=== PATIENT | female | born 1995 | race Caucasian/White ===

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

== ENCOUNTER 2022-10-28 13:53 | Inpatient (IN) ==
[2022-10-28] MEDS ORDERED: ceFAZolin 2000MG 2,000 MG/15 ML SYR IV STA (14:41)
[2022-10-28] MEDS ORDERED: AZITHROMYCIN 500 MG in DEXTROSE 5% 250 ML IV STA (14:41)
[2022-10-28] MEDS ORDERED: OXYTOCIN 30 UNITS/500 ML BAG IV PRN (14:41)
[2022-10-28] MEDS ORDERED: LIDOCAINE 1% LOCAL 20 ML VIAL INFIL PRN (14:41)
[2022-10-28] MEDS ORDERED: LACTATED RINGER'S 1,000 ML IV PRN (14:41)
--- NOTE | 2022-10-28 14:52 | History & Physical Report ---
Date of Service October 28, 2022 Assessment & Plan (1) Active labor: (2) Previous delivery affecting , antepartum: Plan 27 yo at 37 wga presents in labor VSS Fetus cat 1 Appears to be in active labor so will proceed with delivery, desires repeat given traumatic delivery with first. Discussed indications, risks, benefits, alternatives with risks including infection, bleeding, injury to adjacent structures (bowel, bladder, ureters, blood vessels, nerves, baby), possible need for blood transfusion and/or life saving hysterectomy, VTE. Consent reviewed in detail w/ pt and signed after all questions answered to her satisfaction. Plan for ancef and azithro given laboring, anesthesia made aware History of Present Illness Chief Complaint: Contractions Primary Care Provider: Ran Shepherd PA-C 27 yo at 37 wga presents with contractions increasing in frequency and intensity. Started last evening but worsened to q3 since about noon today. 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 Hx: G1 2017 primary CS at 35 wks c/b cervical lac G2 current denies hx STIs 10/2020 neg cyto Allergies Allergy/AdvReac Type Severity Reaction Status Date / Time No Known Allergies Allergy Verified 10/27/22 15:46 Home Medications Medication Instructions Recorded Confirmed Type prenat.vits,alfred,kmz-otdi-qmavy 1 tab PO DAILY 04/07/22 10/27/22 History Patient History Medical History (Updated 10/28/22 @ 14:50 by Deanna Muñoz MD) Abnormal vaginal bleeding pain Premature onset of labor Surgical History (Updated 10/28/22 @ 14:47 by Deanna Muñoz MD) delivery delivered complicated by cervical avulsion Family History (Updated 10/15/20 @ 14:17 by Eda Duarte MD) Grandmother (Maternal) Heart disease Osteoporosis Denies family history of Ovarian cancer Breast cancer Colorectal cancer Social History (Updated 04/07/22 @ 17:11 by Saumya Sanchez) Smoking Status: Never smoker Do You Dip or Chew Tobacco: No; Hx Alcohol Use: No Hx Substance Use: No Beliefs That Will Affect Care: None marital status: Single marital status details: FOB: Clinton (23) [phone] Current Living Situation: Significant Other Current Living Situation Comment: lives with FOB, child, no pets. current occupational status: employed current occupation: Seasonal Clerk. Other Information That Helps Us Care for You: No Feels Safe at Home: Yes Safety Concerns: Feels Safe At This Time Assistive Devices: None Physical Exam Genitourinary: Manual OB Exam: + cervical dilation (3-4), + cervical effacement 80% and + station -2 OB Exam Monitor Tracing: + external FHT monitor used, + external uterine monitor used (q3) and + category I (1 25-130/mod/+accel/-decel) bulging bag noted Results & Data Vital Signs (Past 12 Hours) Vital Signs Temp Resp 10/28/22 14:02 97.9 F 20 Laboratory Results OB Labs: Blood Type O Positive 04/14/22 Antibody Screen NEGATIVE 04/14/22 Hemoglobin 13.2 g/dl (12.0-16.0) 09/04/22 Hematocrit 37.4 % (37.0-47.0) 09/04/22 Mean Corpuscular Volume 94.0 fL (80.0-100.0) 09/04/22 Platelet Count 269 K/uL (130-400) 09/04/22 Rubella IgG Antibody Non Immune (Immune) L 04/14/22 Rapid Plasma ReaginE Nonreactive (Nonreactive) 04/14/22 Hepatitis B Surface Antigen. NON-REACTIVE (NON-REACTIVE) 04/14/22 Hepatitis C Antibody (EIA) NON-REACTIVE (NON-REACTIVE) 04/14/22 HIV (1&2) Ag and Ab Confirmation NON-REACTIVE (NON-REACTIVE) 04/14/22 Glucose 1 Hour 50 gm Load 111 mg/dl (70-130) 08/24/22 OB Optional Labs: Chlamydia trachomatis RNA Not Detected (NotDetected) 04/14/22 Neisseria gonorrhoeae RNA Not Detected (NotDetected) 04/14/22 GBS pending Diagnostic Findings posterior plac Coding Level of Care Code None Diagnoses Active labor Previous delivery affecting , antepartum O34.219
[2022-10-28 15:10] LABS: Hematocrit (blood only) 35.8 % (37.0-47.0); Hemoglobin 12.6 g/dl (12.0-16.0); Mean Corpuscular Hemoglobin 32.1 pg (25.0-34.0); Mean Corpuscular Hgb Conc 35.2 g/dL (32.0-36.0); Mean Corpuscular Volume 91.3 fL (80.0-100.0); Mean Platelet Volume 11.4 fL (9.4-12.4); Platelet Count 275 K/uL (130-400); RDW Coefficient of Variation 13.3 % (11.5-14.5); RDW Standard Deviation 44.1 fL (36.4-46.3); Red Blood Count 3.92 M/uL (4.20-5.40); White Blood Count 12.65 K/ul (4.8-10.8)
[2022-10-28] MEDS ORDERED: CITRIC ACID/SODIUM CITRATE 15 ML UDC ONE (15:11)
--- NOTE | 2022-10-28 15:15 | Anesthesiology Consultation ---
Date of Service October 28, 2022 Assessment & Plan Chart Review Chart Review: Acceptable Risk for Surgery Consults Requested none History Surgery Operation Date: 10/28/22 14:55 Proposed Procedures p Repeat Section in LD - Deanna Muñoz MD Height/Weight Height: 5 ft 2 in Weight: 68.946 kg Allergies Allergy/AdvReac Type Severity Reaction Status Date / Time No Known Allergies Allergy Verified 10/27/22 15:46 Medications Home Medications Medication Instructions Recorded Confirmed Last Taken prenat.vits,alfred,sms-datt-fjuhm 1 tab PO DAILY 04/07/22 10/28/22 Unknown Active Medications Generic Name Dose Route Start Last Admin Trade Name Freq PRN Reason Stop Dose Admin Lactated Ringer's 1,000 mls @ 125 mls/hr 10/28/22 14:41 10/28/22 14:55 Lr IV 10/30/22 14:40 999 mls/hr .Q8H PRN Administration L&D Protocol Protocol NPO Date Last Intake of Fluids: 10/28/22 Time Last Intake of Fluids: 15:01 Date Last Intake of Solids: 10/27/22 Time Last Intake of Solids: 17:00 Past Medical History Medical History (Updated 10/28/22 @ 14:50 by Deanna Muñoz MD) Abnormal vaginal bleeding pain Premature onset of labor Past Family History Family History (Updated 10/15/20 @ 14:17 by Eda Duarte MD) Grandmother (Maternal) Heart disease Osteoporosis Denies family history of Ovarian cancer Breast cancer Colorectal cancer Past Surgical History Surgical History (Updated 10/28/22 @ 14:47 by Deanna Muñoz MD) delivery delivered complicated by cervical avulsion Social History Smoking Status: Never smoker Do You Dip or Chew Tobacco: No Hx Alcohol Use: No Hx Substance Use: No substance use type: does not use Physical Exam Vital Signs Last Vital Signs Temp 36.6 C 10/28/22 14:02 Resp 20 10/28/22 14:02 Testing Laboratory Results 10/28/22 14:49
[2022-10-28] MEDS ORDERED: ePHEDrine sulfate 50 MG/ML AMP IV PRN (15:28)
[2022-10-28] MEDS ORDERED: KETOROLAC 30 MG/ML VIAL IV PRN (15:28)
[2022-10-28] MEDS ORDERED: MoRPHine SULFATE 2 MG/ML CARP IV PRN (15:28)
[2022-10-28] MEDS ORDERED: NALBUPHINE HCL INJ 10 MG/ML AMP IV PRN (15:28)
[2022-10-28] MEDS ORDERED: NALOXONE HCL 1 MG in SODIUM CHLORIDE 0.9% 1000ML 1,000 ML IV PRN (15:28)
[2022-10-28] MEDS ORDERED: PROMETHAZINE HCL 25 MG in SODIUM CHLORIDE 0.9% 50 ML IV PRN (15:28)
[2022-10-28] MEDS ORDERED: LACTATED RINGER'S 500 ML IV PRN (15:28)
[2022-10-28] MEDS ORDERED: NALOXONE HCL 0.08 MG in SYRINGE 1.8 ML IV PRN (15:28)
[2022-10-28] MEDS ORDERED: MoRPHine SULFATE PF 1 MG/ML 10 ML AMP/VIAL INT SPINAL ONE (15:28)
[2022-10-28] MEDS ORDERED: NALOXONE HCL 0.4 MG/1 ML VIAL/CARP IV PRN (15:28)
[2022-10-28] MEDS ORDERED: HYDROmorphone INJ 0.5 MG/0.5 ML SYR IV PRN (15:28)
[2022-10-28] MEDS ORDERED: diphenhydrAMINE 50 MG/ML VIAL IV PRN (15:28)
[2022-10-28] MEDS ORDERED: ONDANSETRON INJ 2 MG/ML 2 ML VIAL IV PRN (15:28)
[2022-10-28] MEDS ORDERED: MEPERIDINE HCL 25 MG/ML CARP/VIAL IV PRN (15:28)
[2022-10-28] MEDS ORDERED: SODIUM CHLORIDE 0.9% 1000ML 1,000 ML IV SCH (15:30)
[2022-10-28] MEDS ORDERED: NO NARCOTICS OR SEDATIVES SCH (15:30)
[2022-10-28] MEDS ORDERED: DC INTRASPINAL MORPHINE SCH (15:30)
[2022-10-28] MEDS ORDERED: MoRPHine SULFATE PF 1 MG/ML 10 ML AMP/VIAL ONE (15:34)
[2022-10-28] MEDS ORDERED: PHENYLEPHRINE HCL 10 MG/ML VIAL ONE (16:24)
[2022-10-28] MEDS ORDERED: OXYTOCIN 10 UNITS/ML VIAL ONE (16:56)
--- NOTE | 2022-10-28 17:04 | Operative Report ---
PG Post Operative Report Pre & Post Diagnosis Operation Date: 10/28/22 14:55 Pre-Op Diagnosis: Single intrauterine at 37 weeks gestation, Labor, History of x 1 desires repeat Post-Op Diagnosis: Single intrauterine at 37 weeks gestation, Labor, History of x 1 desires repeat, delivered I identified the patient and participated in the time-out.: Yes Procedure Operation Date: 10/28/22 14:55 Actual Procedures p Repeat Low Transverse Section in for a viable baby girl at [address] Muñoz. - Denana Muñoz MD Surgeon Deanna Muñoz MD [employer] SUSIE Devries Estimated Blood Loss 700 Findings Consistent with Post-Op Diagnosis Moderate rectus adhesions. Normal appearing uterus, bilateral fallopian tubes and ovaries. Viable female with APGARs of 9 and 9 Fluids 600cc crystalloid, UOP 50cc draining clear urine Specimens Placenta, cord blood Drains Stearns draining clear urine Anesthesia Type Spinal Complications none Disposition Accompanied Patient To Recovery: Yes Disposition: L&D Indications 27 yo at 37 wga presented with contractions increasing in frequency and intensity. She was goldie every 3 minutes and found to be 3-4cm with bulging bag on arrival. Given active labor and history of CS x 1 with planned repeat, decision was made to proceed with delivery. Description of Procedure The patient was taken to the operating room after consents were ensured. The patient was properly identified. Spinal anesthesia was obtained without difficulty. The patient was placed in a dorsal supine position with left lateral tilt, then prepped and draped in normal sterile fashion. Surgical time out was performed. Antibiotics were given for prophylaxis. Anesthesia was tested to ensure adequate surgical levels. Pfannenstiel skin incision was performed and carried down to the underlying fascia with a knife. The fascia was then nicked in the midline and extended laterally with pickestefany and Rueda scissors. Superior portion of the fascia was grasped with Kochers x2 and elevated off the underlying rectus muscles using blunt dissection. Inferior portion of the fascia was then grasped with Eduardo clamps x2 and also elevated off the underlying muscles with blunt dissection. Midline was identified. The peritoneum was then entered and extended to provide adequate room for delivery of baby. A hand was inserted into the abdomen, uterus was noted to be clear of adhesions. Bladder blade was inserted, bladder flap was created in the usual fashion. A low transverse uterine incision was made in the uterus and extended bluntly in a superior to inferior fashion. Amniotomy was made with clear fluid at the time of rupture. head was grasped and elevated through the hysterotomy in an atraumatic fashion. The baby delivered in MILY position, no nuchal cord. Remainder of the body delivered without incident. Nose and mouth were bulb suctioned on the surgical field. The cord was double clamped and cut, baby was handed off to awaiting pediatrics staff. Cord segment and blood were obtained. Placenta was then expressed from the uterus. The uterus was exteriorized. Several passes were made inside the uterus to remove the remaining membranes. Attention was then turned to the hysterotomy, which was then closed with a running locked suture of 0 Vicryl on a CTX needle. An imbricating layer was then performed using 0-Monocryl. There was noted to be good hemostasis. The posterior cul-de-sac was then inspected and cleaned of clot and debris. The hysterotomy was again inspected and noted to be hemostatic. The uterus was returned to the abdomen. The right and left pericolic gutters were cleaned of all clot and debris. The hysterotomy was again noted to be hemostatic. Space of Retzius was noted to be hemostatic. Osman was applied to the hysterotomy. The fascia was then closed with a running suture of 0 Vicryl on a CT1 needle. Subcutaneous tissue was copiously irrigated and noted to be hemostatic. Subcutaneous tissue was re-approximated using 2-0 plain gut. The skin was then closed with a running suture of 3-0 Monocryl in a subcuticular fashion. At termination of the procedure, fundal pressure was applied and a moderate amount of lochia was expressed. Pressure dressing was applied to the patient. She tolerated the procedure well. All sponge, needle, instrument counts were correct x 2. I attest to the content of the Intraoperative Record and any orders documented therein. Any exceptions are noted below. OB Procedure Charges 60553
[2022-10-28] MEDS ORDERED: HYDROCORTISONE ACETATE 25 MG SUPP PR PRN (17:18)
[2022-10-28] MEDS ORDERED: OXYTOCIN 20 UNITS in LACTATED RINGER'S 1,000 ML IV SCH (17:18)
[2022-10-28] MEDS ORDERED: MAGNESIUM HYDROXIDE SUSP 30 ML UDC PO PRN (17:18)
[2022-10-28] MEDS ORDERED: SENNA 8.6 MG TAB PO PRN (17:18)
[2022-10-28] MEDS ORDERED: DIPHTHERIA/TETANUS/PERTUSSIS Vaccine (Tdap, Age 7+yrs) 0.5mL SYR/VL IM ONE (17:18)
[2022-10-28] MEDS ORDERED: MEASLES, MUMPS & RUBELLA VIRUS VIAL SQ ONE (17:18)
[2022-10-28] MEDS ORDERED: BENZOCAINE 20% AER SPR 82.5 GM CAN EXT PRN (17:18)
--- NOTE | 2022-10-28 18:31 | Anesthesiology Progress Note ---
Date of Service October 28, 2022 Anesthesia Post Procedure Vital Signs Vital Signs: Temp Pulse Resp BP Pulse Ox O2 Del Method 10/28/22 18:03 18 10/28/22 17:53 18 10/28/22 17:43 18 Room Air 10/28/22 17:33 18 Room Air 10/28/22 17:23 18 10/28/22 17:13 18 Room Air 10/28/22 17:03 36.5 C 18 Room Air 10/28/22 14:02 36.6 C 20 10/28/22 18:26 75 100 10/28/22 18:22 84 116/67 10/28/22 18:21 80 100 10/28/22 18:16 77 100 10/28/22 18:15 84 91 10/28/22 18:13 83 116/61 10/28/22 18:11 79 100 10/28/22 18:06 74 100 10/28/22 18:03 87 108/55 L 10/28/22 18:01 84 99 10/28/22 17:56 77 100 10/28/22 17:53 77 115/70 10/28/22 17:51 77 100 10/28/22 17:46 81 100 10/28/22 17:43 81 116/65 10/28/22 17:41 79 100 10/28/22 17:40 82 89 L 10/28/22 17:36 81 100 10/28/22 17:34 85 92 10/28/22 17:33 82 108/67 10/28/22 17:31 80 100 10/28/22 17:26 86 98 10/28/22 17:24 95 H 126/65 10/28/22 17:21 85 96 10/28/22 17:22 88 92 10/28/22 17:16 83 100 10/28/22 17:13 83 104/51 L 10/28/22 17:11 87 100 10/28/22 17:06 85 100 10/28/22 17:03 90 125/59 L 10/28/22 17:01 91 H 100 Pain Intensity Bilateral Lower Abdomen: Pain Intensity: 2 Transfer of Care Handoff Completed per policy Notes Mental Status: alert / awake / arousable and participated in evaluation Nausea / Vomiting: adequately controlled Pain: adequately controlled Airway Patency, RR, SpO2: stable & adequate BP & HR: stable & adequate Hydration State: stable & adequate Neuraxial Anesthesia: was administered and sensory block is resolving Anesthetic Complications: no major complications apparent and Pt Satisfied with anesthetic care
[2022-10-28] MEDS: LACTATED RINGER'S 1,000 ML IV SCH (23:54)
[2022-10-28] MEDS: DOCUSATE SODIUM 100 MG CAP PO SCH (23:55)
[2022-10-28] MEDS: SIMETHICONE 80 MG CHEW PO SCH (23:55)
[2022-10-29] MEDS ORDERED: CITRIC ACID/SODIUM CITRATE 15 ML UDC PO ONE (00:41)
[2022-10-29] MEDS: LACTATED RINGER'S 1,000 ML IV SCH ×2 (02:34→16:09)
--- NOTE | 2022-10-29 06:58 | Obstetrical Progress Note ---
Date of Service October 29, 2022 Assessment & Plan (1) Previous delivery affecting , antepartum: (2) Encounter for care and examination after delivery: Plan 27 yo POD 1 from [facility], doing well -Meeting all pp milestones -O+/rubella nonimmune, MMR ordered -f/u 6 weeks for appt, continue routine pp care Subjective Voiding: no voiding problems and guerrero catheter in place Passing Gas:: Yes Diet Tolerance:: regular diet Lochia:: Small Pain well managed with medication. Not yet ambulated, guerrero in Review of Systems Denies fevers, chills, n/v, BREWSTER, CP, SOB Physical Exam Constitutional WD/WN, vitals as above no acute distress Respiratory normal respiratory effort, lungs clear to auscultation Cardiovascular RRR, no murmur, no edema Gastrointestinal (Abdomen) Percussion/Palpation: abdomen soft; abdomen nontender fundus firm at umbilicus and NT. Dressing c/d/i Musculoskeletal BLE symmetric, nonerythematous, nontender Results & Data Vital Signs (Past 12 Hours) Vital Signs Temp Pulse Pulse Resp BP BP Pulse Ox 10/29/22 04:00 18 98 10/29/22 03:00 18 100 10/29/22 02:00 18 100 10/29/22 01:00 18 100 10/28/22 22:45 18 99 10/28/22 21:30 18 98 10/28/22 20:30 18 100 10/29/22 04:40 18 98 10/29/22 04:40 98.4 F 86 18 109/70 98 10/29/22 00:05 18 100 10/29/22 00:05 98.4 F 83 18 111/75 100 10/28/22 19:30 18 100 10/28/22 19:30 98.1 F 83 18 118/78 100 10/28/22 19:16 87 100 10/28/22 19:12 83 117/69 10/28/22 19:11 81 100 10/28/22 19:06 87 100 10/28/22 19:03 82 114/57 L 10/28/22 19:01 81 100 O2 Del Method 10/29/22 04:00 10/29/22 03:00 10/29/22 02:00 10/29/22 01:00 10/28/22 22:45 10/28/22 21:30 10/28/22 20:30 10/29/22 04:40 10/29/22 04:40 Room Air 10/29/22 00:05 10/29/22 00:05 Room Air 10/28/22 19:30 10/28/22 19:30 Room Air 10/28/22 19:16 10/28/22 19:12 10/28/22 19:11 10/28/22 19:06 10/28/22 19:03 10/28/22 19:01
[2022-10-29 08:35] LABS: Basophils # (auto) 0.02 K/uL (0-0.2); Basophils % (auto) 0.2 %; Eosinophils # (auto) 0.04 K/uL (0-0.50); Eosinophils % (auto) 0.4 %; Hematocrit (blood only) 32.8 % (37.0-47.0); Hemoglobin 11.3 g/dl (12.0-16.0); Immature Granulocytes # (auto) 0.09 K/uL (0.01-0.20); Immature Granulocytes % (auto) 0.8 %; Lymphocytes # (auto) 1.02 K/uL (1.2-3.4); Lymphocytes % (auto) 9.4 %; Mean Corpuscular Hemoglobin 31.8 pg (25.0-34.0); Mean Corpuscular Hgb Conc 34.5 g/dL (32.0-36.0); Mean Corpuscular Volume 92.4 fL (80.0-100.0); Mean Platelet Volume 11.4 fL (9.4-12.4); Monocytes # (auto) 0.74 K/uL (0.11-0.59); Monocytes % (auto) 6.8 %; Neutrophils # (auto) 8.99 K/uL (1.40-6.50); Neutrophils % (auto) 82.4 %; Platelet Count 210 K/uL (130-400); RDW Coefficient of Variation 13.2 % (11.5-14.5); RDW Standard Deviation 44.6 fL (36.4-46.3); Red Blood Count 3.55 M/uL (4.20-5.40)
[2022-10-29] MEDS: SIMETHICONE 80 MG CHEW PO SCH ×3 (08:45→20:55)
[2022-10-29] MEDS: DOCUSATE SODIUM 100 MG CAP PO SCH ×2 (08:45→20:55)
[2022-10-29] MEDS: IBUPROFEN 600 MG TAB PO PRN ×2 (08:46→20:56)
[2022-10-29] MEDS: PRENATAL VITAMIN 1 TAB PO SCH (08:46)
[2022-10-29] MEDS: FERROUS SULFATE 325 MG TAB PO SCH (08:49)
[2022-10-29] MEDS ORDERED: diphenhydrAMINE Capsule 25 MG CAP PO PRN (09:28)
[2022-10-29] MEDS ORDERED: PROMETHAZINE HCL 25 MG in SODIUM CHLORIDE 0.9% 50 ML IV PRN (09:28)
[2022-10-29] MEDS ORDERED: KETOROLAC 30 MG/ML VIAL IV PRN (09:28)
[2022-10-29] MEDS ORDERED: ONDANSETRON INJ 2 MG/ML 2 ML VIAL IV PRN (09:28)
[2022-10-29] MEDS ORDERED: diphenhydrAMINE 50 MG/ML VIAL IV PRN (09:28)
[2022-10-29] MEDS ORDERED: bisacodyL 5 MG TABEC PO SCH (20:00)
[2022-10-29] MEDS: oxyCODONE/ACETAMINOPHEN 5mg/325mg TAB PO PRN (20:55)
[2022-10-30] MEDS: IBUPROFEN 600 MG TAB PO PRN (05:52)
[2022-10-30] MEDS: oxyCODONE/ACETAMINOPHEN 5mg/325mg TAB PO PRN (05:53)
[2022-10-30 07:49] LABS: Hematocrit (blood only) 31.4 % (37.0-47.0); Hemoglobin 10.6 g/dl (12.0-16.0)
[2022-10-30] MEDS: DOCUSATE SODIUM 100 MG CAP PO SCH (08:16)
[2022-10-30] MEDS: FERROUS SULFATE 325 MG TAB PO SCH (08:16)
[2022-10-30] MEDS: SIMETHICONE 80 MG CHEW PO SCH (08:16)
[2022-10-30] MEDS: PRENATAL VITAMIN 1 TAB PO SCH (08:16)
--- NOTE | 2022-10-30 08:55 | Obstetrical Progress Note ---
Date of Service October 30, 2022 Assessment & Plan (1) Encounter for care and examination after delivery: satisfactory progress discharge today follow up in 6 weeks Subjective Ambulation: ambulating normally Voiding: no voiding problems Passing Gas:: Yes Diet Tolerance:: regular diet Lochia:: Small Feeding Type:: breast feeding pain well controlled with oral meds Review of Systems All systems reviewed & are unremarkable except as noted in HPI & below Physical Exam Constitutional WD/WN, vitals as above Gastrointestinal (Abdomen) incision dry and intact- no cellulitis Psychiatric A+Ox3, euthymic affect Genitourinary OB Exam Abdomen: + fundal height Fundus: + firm and + relation to umbilicus (2 below) Results & Data Vital Signs (Past 12 Hours) Vital Signs Temp Pulse Resp BP Pulse Ox O2 Del Method 10/30/22 00:00 Room Air 10/29/22 23:31 98.4 F 87 18 115/64 97 Room Air
[2022-10-30] MEDS ORDERED: bisacodyL 10 MG SUPP PR PRN (17:02)
--- NOTE | 2022-11-02 09:02 | Discharge Summary ---
Date of Service November 02, 2022 Admission HPI Per Admitting Provider 27 yo at 37 wga presents with contractions increasing in frequency and intensity. Started last evening but worsened to q3 since about noon today. 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 Hx: G1 2017 primary CS at 35 wks c/b cervical lac G2 current denies hx STIs 10/2020 neg cyto Admission Exam (Per Admitting) Constitutional WD/WN, vitals as above no acute distress Respiratory normal respiratory effort, lungs clear to auscultation Cardiovascular RRR, no murmur, no edema Gastrointestinal (Abdomen) Percussion/Palpation: abdomen soft; abdomen nontender Genitourinary Manual OB Exam: + cervical dilation (3-4), + cervical effacement + 80% and + station + -2 OB Exam Monitor Tracing: + external FHT monitor used, + external uterine monitor used (q3) and + category I (125-130/mod/+accel/-decel) Discharge Data Consultations 10/28/22 14:42 Consult Anesthesiology Stat Procedures Performed Operation Date: 10/28/22 14:55 Actual Procedures p Repeat Section in LD for a viable baby girl at [address] Muñoz. - Deanna Muñoz MD Hospital Course (1) Previous delivery affecting , antepartum: 27 yo at 37 wga presented with contractions increasing in frequency and intensity. She was goldie every 3 minutes and found to be 3-4cm with bulging bag on arrival. Given active labor and history of CS x 1 with planned repeat, decision was made to proceed with delivery. See op report for details. course was uncomplicated and she was discharged home on POD2 Coding Level of Care Code None Diagnoses Previous delivery affecting , antepartum O34.219
== END 2022-10-30 12:51 | disposition home or self-care (01) | DRG 788 ==
LOC: OPB 13:53 → 4S1 13:56 → 4E2 19:53